=== PATIENT | male | born 1980 | race Caucasian/White ===

== ENCOUNTER 2017-01-02 08:04 | Emergency (ER) | payer SELFPAY ==
[~2017-01-02] VITALS: Ht 162.6 cm; Wt 89.8 kg
[2017-01-02 08:40] VITALS: BP 162/86
== END 2017-01-02 08:40 | disposition home or self-care (01) ==
LOC: ED 08:04
DX: L02.811 Cutaneous abscess of head [any part, except face] (principal); E11.9 Type 2 diabetes mellitus without complications; Z79.899 Other long term (current) drug therapy

== ENCOUNTER 2017-02-18 23:39 | Emergency (ER) | payer SELFPAY ==
[2017-02-19 00:45] VITALS: BP 167/88
== END 2017-02-19 00:45 | disposition home or self-care (01) ==
LOC: ED 23:39
DX: S20.211A Contusion of right front wall of thorax, initial encounter (principal); R10.9 Unspecified abdominal pain; E11.9 Type 2 diabetes mellitus without complications; Z79.84 Long term (current) use of oral hypoglycemic drugs; Y04.2XXA Assault by strike against or bumped into by another person, initial encounter; Y93.89 Activity, other specified; Y92.89 Other specified places as the place of occurrence of the external cause; Y99.0 Civilian activity done for income or pay

== ENCOUNTER 2017-05-06 21:18 | Emergency (ER) | payer SELFPAY ==
[2017-05-06 23:21] VITALS: BP 142/84
== END 2017-05-06 23:21 | disposition home or self-care (01) ==
LOC: ED 21:18
DX: L03.811 Cellulitis of head [any part, except face] (principal); E11.9 Type 2 diabetes mellitus without complications; F17.210 Nicotine dependence, cigarettes, uncomplicated
CPT/HCPCS: J0696; J1885

== ENCOUNTER 2018-10-22 11:55 | Emergency (ER) | payer SELFPAY ==
[~2018-10-22] VITALS: Ht 162.6 cm; Wt 93.4 kg
[2018-10-22 11:59] VITALS: Ht 162.6 cm; Wt 93.4 kg
[2018-10-22 15:29] VITALS: BP 158/84
== END 2018-10-22 15:29 | disposition home or self-care (01) ==
LOC: ED 11:55
DX: L02.413 Cutaneous abscess of right upper limb (principal); E11.9 Type 2 diabetes mellitus without complications
CPT/HCPCS: 90715; J2001; J2270; Q0162